=== PATIENT | female | born 2000 | race Caucasian/White ===

== ENCOUNTER 2018-11-24 11:57 | Emergency (ER) | payer OTHER ==
[~2018-11-24] VITALS: Ht 170.2 cm; Wt 89.6 kg
[2018-11-24 13:05] LABS: BASO # 0.1 10^3/uL (0.0-0.2); BASO % 0.3 % (0.0-1.0); EOS # 0.1 10^3/uL (0.0-0.5); EOS % 0.3 % (0.0-3.0); HEMATOCRIT 40.8 % (36.0-47.0); HEMOGLOBIN 13.6 g/dl (12.0-15.5); LYMPH # 1.2 10^3/uL (1.5-5.0); MEAN CORPUSCULAR HEMOGLOBIN 32.1 pg (27.0-33.0); MEAN CORPUSCULAR HGB CONC 33.3 g/dl (32.0-36.5); MEAN CORPUSCULAR VOLUME 96.2 fl (80.0-96.0); MONO # 1.8 10^3/uL (0.0-0.8); MONO % 7.7 % (0.0-5.0); NEUTROPHILS # 20.2 10^3/uL (1.5-8.5); NEUTROPHILS % 86.1 % (36.0-66.0); PLATELET COUNT, AUTOMATED 325 10^3/uL (150-450); RED BLOOD COUNT 4.24 10^6/uL (4.00-5.40); WHITE BLOOD COUNT 23.5 10^3/uL (4.0-10.0)
[2018-11-24 13:14] LABS: ALBUMIN 3.8 GM/DL (3.2-5.2); ALT/SGPT 18 U/L (12-78); BILIRUBIN,DIRECT 0.1 MG/DL (0.0-0.2); BILIRUBIN,TOTAL 0.4 MG/DL (0.2-1.0); BLOOD UREA NITROGEN 13 MG/DL (7-18); CALCIUM LEVEL 9.1 MG/DL (8.5-10.1); CARBON DIOXIDE LEVEL 24 MEQ/L (21-32); CHLORIDE LEVEL 109 MEQ/L (98-107); GLUCOSE, FASTING 83 MG/DL (70-100); LIPASE 68 U/L (73-393); POTASSIUM SERUM 4.2 MEQ/L (3.5-5.1); SODIUM LEVEL 139 MEQ/L (136-145); TOTAL PROTEIN 8.2 GM/DL (6.4-8.2)
[2018-11-24 13:59] LABS: HCG, SERUM QUALITATIVE NEGATIVE (NEGATIVE)
[2018-11-24] MEDS ORDERED: NS 1,000 ML IV ONE (14:00)
[2018-11-24] MEDS ORDERED: ONDANSETRON 4MG/2ML VIAL (J2405) IV ONE (14:00)
[2018-11-24] MEDS ORDERED: ISOVUE-370 76% 100ML VIAL (Q9967) As Ordered ONE (14:04)
[2018-11-24 14:23] LABS: C REACTIVE PROTEIN QUANTITATIV < 0.30 MG/DL (0.00-0.30)
--- NOTE | 2018-11-24 15:16 | REP ---
CT abdomen and pelvis with IV but without oral contrast: History: Upper abdomen pain. Rule out colitis or abscess. CT contrast dose: 100 mL of intravenous Isovue 370. CT findings: Preliminary digital gate agent radiograph is unremarkable. The lung bases are clear. The liver and the spleen are normal in size, homogeneous in texture. The gallbladder and the pancreas are unremarkable. No adrenal lesion is seen on either side. The kidneys enhance symmetrically and are morphologically intact. Normal appendix is visible in the right lower quadrant. Uterus tipped somewhat to the right and contains an IUD in good position. There is a physiologic amount of fluid in the cul-de-sac. Urinary bladder is unremarkable. No ovarian abnormality is appreciated. Small and large bowel loops are unremarkable. Impression: IUD in place. Normal CT study abdomen and pelvis. Normal appendix seen. Electronically Signed by Benedicto Saldana MD 11/24/2018 06:37 P
--- NOTE | 2018-11-24 15:18 | REP ---
REASON: Upper abdominal pain. PRIORS: None. Multiple ultrasonographic images of the liver show the hepatic parenchymal echo pattern to be within normal limits. There is no intrahepatic or extrahepatic ductal dilatation. The common bile duct measures between 4-5 mm. Multiple ultrasonographic images of the gallbladder show no abnormal gallbladder wall thickening, pericholecystic edema, or cholelith. The imaged portion of the pancreas and right kidney show no abnormalities. IMPRESSION: Unremarkable right upper quadrant ultrasound as described above. Electronically Signed by Damion Quintero DO 11/24/2018 04:04 P
[2018-11-24] MEDS ORDERED: ONDA8TAB8 PO (16:27)
[2018-11-24] MEDS ORDERED: ACET-683 PO (16:27)
[2018-11-24 16:50] VITALS: BP 132/70
== END 2018-11-24 16:51 | disposition home or self-care (01) ==
LOC: M ED 11:57
DX: R10.9 Unspecified abdominal pain (principal); R19.7 Diarrhea, unspecified; R11.10 Vomiting, unspecified
CPT/HCPCS: 74177; 76705; 80048; 80076; 81001; 83690; 84702; 84703; 85025; 86140; 87040; 96374; 96375; 99284; J2405; Q9967

== ENCOUNTER 2018-11-29 17:26 | Emergency (ER) | payer OTHER ==
[~2018-11-29] VITALS: Ht 172.7 cm; Wt 88.7 kg
[~2018-11-29 17:26] MED LIST: ACET-683 PO; ONDA8TAB8 PO
[2018-11-29] MEDS ORDERED: ALIG4CAP (17:32)
[2018-11-29] MEDS ORDERED: OMEP-218 (17:32)
[2018-11-29] MEDS ORDERED: SUCR1SS (17:32)
[2018-11-29] MEDS ORDERED: MIRE1IUD IU (17:34)
[2018-11-29] MEDS ORDERED: ONDANSETRON 4MG/2ML VIAL (J2405) IV ONE (18:15)
[2018-11-29] MEDS ORDERED: GI COCKTAIL 50ML BTL(HYOSCYAMINE/MAALOX/LIDOCAINE VISCOUS)(1:3:1) PO ONE (18:15)
[2018-11-29] MEDS ORDERED: NS 1,000 ML IV ONE (18:15)
[2018-11-29] MEDS ORDERED: ONDANSETRON 4 MG ORAL DISINTEGRATING TAB (Q0162 PER 1MG) PO ONE (18:30)
[2018-11-29 18:48] LABS: BASO # 0.1 10^3/uL (0.0-0.2); BASO % 0.6 % (0.0-1.0); EOS # 0.2 10^3/uL (0.0-0.5); EOS % 1.9 % (0.0-3.0); HEMATOCRIT 39.1 % (36.0-47.0); LYMPH % 35.6 % (24.0-44.0); MEAN CORPUSCULAR HEMOGLOBIN 31.6 pg (27.0-33.0); MEAN CORPUSCULAR HGB CONC 33.2 g/dl (32.0-36.5); MEAN CORPUSCULAR VOLUME 94.9 fl (80.0-96.0); MONO # 1.1 10^3/uL (0.0-0.8); MONO % 9.6 % (0.0-5.0); NEUTROPHILS # 5.8 10^3/uL (1.5-8.5); PLATELET COUNT, AUTOMATED 350 10^3/uL (150-450); RED BLOOD COUNT 4.12 10^6/uL (4.00-5.40); WHITE BLOOD COUNT 11.2 10^3/uL (4.0-10.0)
[2018-11-29 19:03] LABS: ALBUMIN 3.7 GM/DL (3.2-5.2); ALT/SGPT 29 U/L (12-78); BILIRUBIN,TOTAL 0.5 MG/DL (0.2-1.0); BLOOD UREA NITROGEN 7 MG/DL (7-18); CALCIUM LEVEL 8.5 MG/DL (8.5-10.1); CARBON DIOXIDE LEVEL 28 MEQ/L (21-32); CHLORIDE LEVEL 108 MEQ/L (98-107); CREATININE FOR GFR 0.56 MG/DL (0.55-1.30); GLUCOSE, FASTING 72 MG/DL (70-100); LIPASE 55 U/L (73-393); POTASSIUM SERUM 4.1 MEQ/L (3.5-5.1); SODIUM LEVEL 139 MEQ/L (136-145); TOTAL PROTEIN 7.2 GM/DL (6.4-8.2)
[2018-11-29] MEDS ORDERED: OMEP20CA4 PO (19:16)
[2018-11-29] MEDS ORDERED: ONDA4TAB6 PO (19:16)
[2018-11-29 19:27] VITALS: BP 114/63
== END 2018-11-29 19:28 | disposition home or self-care (01) ==
LOC: M ED 17:26
DX: R10.13 Epigastric pain (principal); K21.9 Gastro-esophageal reflux disease without esophagitis; Z79.899 Other long term (current) drug therapy
CPT/HCPCS: 80053; 83690; 85025; 85379; 96374; 99283; Q0162

== ENCOUNTER 2019-05-04 11:20 | Inpatient (IN) | payer OTHER ==
[~2019-05-04] VITALS: Ht 172.7 cm; Wt 89.9 kg
[~2019-05-04 11:20] MED LIST changes: +ALIG4CAP; +MIRE1IUD IU; +OMEP-218; +OMEP1CAP73 PO; +ONDA4TAB6 PO; +SUCR1SS
[2019-05-04 12:06] LABS: HEMATOCRIT 43.6 % (36.0-47.0); HEMOGLOBIN 14.6 g/dl (12.0-15.5); MEAN CORPUSCULAR HEMOGLOBIN 32.1 pg (27.0-33.0); MEAN CORPUSCULAR HGB CONC 33.5 g/dl (32.0-36.5); MEAN CORPUSCULAR VOLUME 95.8 fl (80.0-96.0); PLATELET COUNT, AUTOMATED 371 10^3/uL (150-450); RED BLOOD COUNT 4.55 10^6/uL (4.00-5.40); WHITE BLOOD COUNT 11.1 10^3/uL (4.0-10.0)
[2019-05-04 12:32] LABS: AMPHETAMINES LEVEL URINE NEGATIVE (NEGATIVE); BARBITURATES URINE NEGATIVE (NEGATIVE); BENZODIAZEPINES URINE NEGATIVE (NEGATIVE); CANNABINOIDS URINE NEGATIVE (NEGATIVE); COCAINE METABOLITE URINE NEGATIVE (NEGATIVE); METHADONE URINE NEGATIVE (NEGATIVE); OPIATES URINE NEGATIVE (NEGATIVE); PHENCYCLIDINE URINE NEGATIVE (NEGATIVE)
[2019-05-04 12:43] LABS: ACETAMINOPHEN LEVEL < 2.0 UG/ML (10.0-30.0); ALBUMIN 4.1 GM/DL (3.2-5.2); ALT/SGPT 21 U/L (12-78); BILIRUBIN,DIRECT 0.2 MG/DL (0.0-0.2); BILIRUBIN,TOTAL 0.7 MG/DL (0.2-1.0); BLOOD UREA NITROGEN 11 MG/DL (7-18); CALCIUM LEVEL 9.1 MG/DL (8.5-10.1); CARBON DIOXIDE LEVEL 26 MEQ/L (21-32); CHLORIDE LEVEL 106 MEQ/L (98-107); CREATININE FOR GFR 0.67 MG/DL (0.55-1.30); ETHYL ALCOHOL (ETHANOL) 0.004 % (0.000-0.010); GLUCOSE, FASTING 117 MG/DL (70-100); SALICYLATE LEVEL < 1.7 MG/DL (5.0-30.0); SODIUM LEVEL 139 MEQ/L (136-145); TOTAL PROTEIN 8.1 GM/DL (6.4-8.2)
[2019-05-04] MEDS ORDERED: IBUPROFEN 600 MG TAB PO ONE (13:15)
[2019-05-04] MEDS ORDERED: ACETAMINOPHEN TAB 650MG DOSE (2X325MG) PO PRN (13:45)
[2019-05-04] MEDS ORDERED: MOM 30ML SUSPENSION UDC PO PRN (13:45)
[2019-05-04] MEDS ORDERED: traZODone 50 MG TAB PO PRN (13:45)
[2019-05-04] MEDS ORDERED: MAALOX 30 ML SUSP *UDC PO PRN (13:45)
[2019-05-04] MEDS ORDERED: ACET-683 PO (14:17)
[2019-05-04 16:12] VITALS: BP 120/68
[2019-05-04 17:32] VITALS: BP 129/83
--- NOTE | 2019-05-04 19:53 | HPEPDOC ---
General Date of Admission May 04, 2019 at 13:35 Date of Service: May 04, 2019 Chief Complaint The patient is a 18-year-old female admitted with a reason for visit of Unspecified Depressive Disorder. Source: Patient History of Present Illness 18 year old [employer] admitted to [facility] for depression. She has been having a lot of stress recently and she has been having suicidal thoughts. She is feeling very depressed. I am seeing the patient for medical history and physical. She complains of having some abdominal cramps today. Says it worsens with intake of dairy products. 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 She sometimes has bilateral leg weakness with difficulty in walking but at present OK. The abdominal cramps are all over the abdomen without any diarrhea or vomiting. Home Medications Scheduled Levonorgestrel (Mirena) 1 Each Iud, 1 DOSE IU ASDIRECTED, (Reported) Scheduled PRN Acetaminophen (Acetaminophen) 500 Mg Tablet, 1,000 MG PO Q6H PRN for PAIN, (Reported) Allergies Coded Allergies: No Known Allergies (Unverified , 11/24/18) Past Medical History Medical History Gastritis, GERD, Congenital Myasthenic syndrome. Family History Significant Family History: Cancer (paternal grandmother), Diabetes (maternal grandmother), Hypertension (maternal uncles) Social History * Smoker: current smoker, greater than 1 pack/day Alcohol: rarely Drugs: denies A-FIB/CHADSVASC A-FIB History Current/History of A-Fib/PAF?: No Review of Systems Constitutional: Denies: Chills, Fever, Night Sweats Eyes: Denies: Pain, Vision change ENT: Denies: Head Aches, Ear Pain, Dysphagia Skin: Denies: Rash, Lesions, Breakdown Pulmonary: Denies: Dyspnea, Cough Cardiovascular: Denies: Chest Pain, Palpitations, Orthopnea, Paroxysmal Noc. Dyspnea, Lt Headedness Gastrointestinal: Reports: Abdominal Pain Genitourinary: Denies: Dysuria, Frequency, Incontinence, Retention Endocrine: Reports: Polydipsia Musculoskeletal: Denies: Neck Pain, Back Pain, Joint Pain, Muscle Pain, Spasms Physical Examination General Exam: Positive: Alert, Cooperative, No Acute Distress Eye Exam: Positive: PERRLA, Conjunctiva & lids normal, EOMI; Negative: Sclera icteric ENT Exam: Positive: Atraumatic, Mucous membr. moist/pink, Pharynx Normal Neck Exam: Positive: Supple; Negative: JVD, thyromegaly Chest Exam: Positive: Clear to auscultation, Normal air movement Heart Exam: Positive: Rate Normal, Regular Rhythm, Normal S1, Normal S2; Negative: Murmurs, Rubs Abdomen Exam: Positive: Normal bowel sounds, Soft, Tenderness (mild generalized tenderness on deep palpation); Negative: Hepatospenomegaly Extremity Exam: Positive: Normal pulses; Negative: Clubbing, Cyanosis, Edema Skin Exam: Positive: Nl turgor and temperature; Negative: Breakdown, Lesion Vital Signs Vital Signs Date Time Temp Pulse Resp B/P (MAP) Pulse Ox O2 Delivery O2 Flow Rate FiO2 05/04/19 16:12 97.3 69 12 120/68 (85) 99 Room Air Laboratory Data Labs 24H Laboratory Tests 2 05/04/19 11:54: Nucleated Red Blood Cells % (auto) 0.0, Anion Gap 7L, Calcium Level 9.1, Total Bilirubin 0.7, Direct Bilirubin 0.2, Aspartate Amino Transf (AST/SGOT) 16, Alanine Aminotransferase (ALT/SGPT) 21, Alkaline Phosphatase 141H, Total Protein 8.1, Albumin 4.1, Albumin/Globulin Ratio 1.03, Thyroid Stimulating Hormone (TSH) 2.690, Salicylates Level < 1.7L, Urine Opiates Screen NEGATIVE, Urine Methadone Screen NEGATIVE, Acetaminophen Level < 2.0L, Urine Barbiturates Screen NEGATIVE, Urine Phencyclidine Screen NEGATIVE, Urine Amphetamines Screen NEGATIVE, Urine Benzodiazepines Screen NEGATIVE, Urine Cocaine Metabolite Screen NEGATIVE, Urine Cannabinoids Screen NEGATIVE, Ethyl Alcohol Level 0.004 CBC/BMP Laboratory Tests 05/04/19 11:54 Assessment/Plan 18 year old female admitted for depression. she has complaints of chronic abdominal pain. Abdominal pain intermittent chronic may be lactose intolerance as says worsens with intake of dairy products also has h/o gastritis and small hiatal hernia. at present says not too bad says sometimes takes omeprazoke if too bad. follow up pmd. Depression as per psych Congenital Myaesthenic syndrome not on any meds. Plan / VTE VTE Prophylaxis Ordered?: No JESSIKA TORRE MD May 04, 2019 17:34
[2019-05-05 06:17] VITALS: BP 127/60
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
[2019-05-05] MEDS ORDERED: hydrOXYzine 25 MG TAB PO PRN (10:15)
[2019-05-05 15:53] VITALS: BP 120/80
[2019-05-06 06:27] VITALS: BP 117/51
--- NOTE | 2019-05-06 08:46 | MHIPNPDOC ---
[facility] Progress Note Progress Note DATE OF SERVICE: 05/06/19 HISTORY: Patient is a 18 -year-old , dependent, female, with no previous psych history who self-presented to the ED endorsing SI with a plan to either shoot herself (no access to weapons as took it away), cut wrists with a knife, or over dose on tylenol due to psychosocial stressors. In the Ed pt endorsed depressed mood and SI with plan due to her psychosocial stressors becoming overwhelming. States she is in her last semester at [employer] in [place] and lives on [facility] until 2wks ago which she was no longer to reside there ans is now finishing classes online residing with her multimedia designer. She stated in the Ed that she does not do well with changes. States her has been very supportive though. Pt stated that her GPA is possibly not enough for [place], her had been planning on moving to [place] but now that's on hold due to COVID19. Pt stated in the Ed that she had been very emotional and thought of shooting herself in the head and stood up to look for ammo to load her 's gun but instead called to suicide hotline. She endorsed a history of binge eating d/o in the ED. Pt seen and states she's here as she usually struggles with anxiety and depression and has recently gone thru a lot of life changes that caused her to feel a lot of anxiety. States she also lost a major support system in her life meaning her professors and friends at school. States she feels "better" today, "more mentally clear." States she feels she "processing" her emotions and life stressors and no longer feels "scared or upset by them." Agreeable to trying vistaril prn anxiety, risks and benefits discussed. Denies SI/HI, hallucinatio ns, delusions. Feels safe here. VITAL SIGNS: See below. NEW TEST RESULTS: See below. CURRENT MEDICATIONS: See below. MENTAL STATUS EXAMINATION: General Appearance: well groomed, appears stated age, hospital scubs/clothing Build: average Demeanor: average Eye Contact: average Activity: average Behavior: cooperative Speech: clear, spontaneous, normal volume Mood: euthymic Mood "ok" Affect: full, appropriate Thought Process: logical/linear, intact Thought Content (Delusions): none reported, denies SI, HI, AVH Thought Content (Other): none reported, appropriate Thought Content (Aggressive): none reported Perception (Hallucinations): none reported Perception (Other): none reported Cognition (Impairment of): none reported Cognition(Intelligence Est.): average Oriented: Awake, Alert, Oriented times three Insight: fair Judgment: Fair Psychosis: Denies DIAGNOSES: adjustment d/o with anxiety and depression r/o Generalized Anxiety D/O hx of binge eating d/o ASSESSMENT:Pt seen and states that her mood is "ok" and her anxiety is improved. States she has not needed to take vistaril for anxiety yet but plans to do some school work today and may take it to if she tolerates it well and it's beneficial. States she slept well last night. She is attending groups and finding them helpful. She denies SI/HI, hallucinations, delusions. Pt feels safe here. MANAGEMENT PLAN: d/c planning for tomorrow vistaril 25mg q4hr prn anxiety TIME SPENT: 30 minutes. Vital Signs Vital Signs Date Time Temp Pulse Resp B/P (MAP) Pulse Ox O2 Delivery O2 Flow Rate FiO2 05/06/19 06:27 99.4 76 18 117/51 (73) 05/05/19 10:20 Room Air 05/04/19 17:32 98 Current Medications Current Medications Medications (Trade) Dose Ordered Sig/Mynor Route PRN Reason Start Time Stop Time Status Last Admin Dose Admin Acetaminophen (Tylenol Tab) 650 mg Q6HP PRN PO HEADACHE or DISCOMFORT 05/04/19 13:45 Al Hydrox/Mg Hydrox/Simethicone (Mylanta) 30 ml Q4HP PRN PO HEARTBURN/INDIGESTION 05/04/19 13:45 Home Med (Med Rec Complete!) ASDIRECTED XX 05/04/19 14:30 05/04/19 14:19 DC Hydroxyzine HCl (Atarax) 25 mg Q4HP PRN PO ANXIETY/AGITATION 05/05/19 10:15 Magnesium Hydroxide (Milk Of Magnesia) 30 ml DAILYPRN PRN PO CONSTIPATION 05/04/19 13:45 Trazodone HCl (Desyrel) 50 mg QHSP PRN PO INSOMNIA 05/04/19 13:45 05/05/19 22:01 Allergies Coded Allergies: No Known Allergies (Unverified , 11/24/18) JOSHUA RYAN DO May 06, 2019 8:46 am
[2019-05-06] MEDS ORDERED: INFLUENZA QUADRIVALENT PF VACCINE 0.5ML SYRINGE (90686) IM ONE (09:00)
[2019-05-06 16:00] VITALS: BP 122/75
[2019-05-07 06:18] VITALS: BP 110/68
[2019-05-07] MEDS ORDERED: HYDR-3363 PO (08:51)
[2019-05-07] MEDS ORDERED: TRAZ-252 PO (08:51)
--- NOTE | 2019-05-07 08:52 | MHDSPDOC ---
[facility] Discharge Summary Discharge Summary DATE OF ADMISSION: May 04, 2019 at 1:35 pm DATE OF DISCHARGE: May 07, 2019 DISCHARGE DIAGNOSES: adjustment d/o with anxiety and depression r/o Generalized Anxiety D/O hx of binge eating d/o REASON FOR ADMISSION: Patient is a 18 -year-old , dependent, female, with no previous psych history who self-presented to the ED endorsing SI with a plan to either shoot herself (no access to weapons as took it aw ay), cut wrists with a knife, or over dose on tylenol due to psychosocial stressors. In the Ed pt endorsed depressed mood and SI with plan due to her psychosocial stressors becoming overwhelming. States she is in her last semester at [employer] in [place] and lives on [facility] until 2wks ago which she was no longer to reside there ans is now finishing classes online residing with her multimedia teacher. She stated in the Ed that she does not do well with changes. States her has been very supportive though. Pt stated that her GPA is possibly not enough for [place], her had been planning on moving to [place] but now that's on hold due to COVID19. Pt stated in the Ed that she had been very emotional and thought of shooting herself in the head and stood up to look for ammo to load her 's gun but instead called to suicide hotline. She endorsed a history of binge eating d/o in the ED. Pt seen and states she's here as she usually struggles with anxiety and depression and has recently gone thru a lot of life changes that caused her to feel a lot of anxiety. States she also lost a major support system in her life meaning her professors and friends at school. States she feels "better" today, "more mentally clear." States she feels she "processing" her emotions and life stressors and no longer feels "scared or upset by them." Agreeable to trying vistaril prn anxiety, risks and benefits discussed. Denies SI/HI, hallucinations, delusions. Feels safe here. CONSULTANTS INVOLVED: none TREATMENT AND PROGRESS ON THE UNIT :Pt was admitted to [facility], seen for psychiatric assessment and chose not to start an antidepressant but rather try outpatient therapy as treatment first. She was provided vistaril 25mg q6hr prn anxiety and trazodone 50mg qhs prn insomnia. Pt found her vistaril beneficial for her anxiety and tolerated it well. She attended groups daily during her stay. Her symptoms improved with treatment. On day of discharge she denied depression, anxiety, insomnia, SI/HI, hallucinations, delusions. She was discharged home with follow-up at the [facility]. She felt safe for discharge DISCHARGE ASSESSMENT: Pt seen and states that her mood is "good" today and that she's looking forward to going home today with her . States she took her vistaril for anxiety it was beneficial for her anxiety and she tolerated it well. States she slept well last night. She is attending groups and finding them helpful. She denies depression, anxiety, insomnia, SI/HI, hallucinations, delusions. Pt feels safe to d/c home today with her . MENTAL STATUS EXAMINATION ON DISCHARGE: General Appearance: well groomed, appears stated age, hospital scubs/clothing Build: average Demeanor: average Eye Contact: average Activity: average Behavior: cooperative Speech: clear, spontaneous, normal volume Mood: euthymic Mood "good" Affect: full, appropriate Thought Process: logical/linear, intact Thought Content (Delusions): none reported, denies SI, HI, AVH Thought Content (Other): none reported, appropriate Thought Content (Aggressive): none reported Perception (Hallucinations): none reported Perception (Other): none reported Cognition (Impairment of): none reported Cognition(Intelligence Est.): average Oriented: Awake, Alert, Oriented times three Insight: good Judgment: good Psychosis: Denies MEDICATIONS ON DISCHARGE: vistaril 25mg tid prn anxiety trazodone 50mg qhs prn insomnia PLAN/FOLLOWUP ARRANGEMENTS: D/c home with follow-up at the [facility]. The amount of time spent in the coordination of care for this patient was approximately 30 minutes. Vital Signs/I&Os Vital Signs Date Time Temp Pulse Resp B/P (MAP) Pulse Ox O2 Delivery O2 Flow Rate FiO2 05/07/19 06:18 97.5 84 18 110/68 (82) 05/06/19 08:54 Room Air 05/04/19 17:32 98 Medications Scheduled Levonorgestrel (Mirena) 1 Each Iud, 1 DOSE IU ASDIRECTED, (Reported) Scheduled PRN Acetaminophen (Acetaminophen) 500 Mg Tablet, 1,000 MG PO Q6H PRN for PAIN, (Reported) Allergies Coded Allergies: No Known Allergies (Unverified , 11/24/18) JOSHUA RYAN DO May 07, 2019 8:52 am
== END 2019-05-07 11:15 | disposition home or self-care (01) | DRG 882 ==
LOC: M ED 11:20 → M ED INP 13:35 → M PSY 14:43
PROVIDERS: ADMIT Psychiatry & Neurology Psychiatry; ATTEND Psychiatry & Neurology Psychiatry
DX: F43.23 Adjustment disorder with mixed anxiety and depressed mood (principal); G70.2 Congenital and developmental myasthenia; Z81.8 Family history of other mental and behavioral disorders; Z81.1 Family history of alcohol abuse and dependence; Z62.811 Personal history of psychological abuse in childhood; F41.1 Generalized anxiety disorder; F50.81 Binge eating disorder; Z79.3 Long term (current) use of hormonal contraceptives; Z63.8 Other specified problems related to primary support group

== ENCOUNTER 2019-08-17 21:22 | Emergency (ER) | payer OTHER ==
[~2019-08-17] VITALS: Ht 172.7 cm; Wt 96.5 kg
[~2019-08-17 21:22] MED LIST changes: +HYDR-3363 PO; +TRAZ-252 PO
[2019-08-17 21:23] VITALS: BP 126/75
[2019-08-17] MEDS ORDERED: ZOLO25TA PO (21:40)
[2019-08-18] MEDS ORDERED: predniSONE 20 MG TAB PO ONE (00:45)
[2019-08-18] MEDS ORDERED: diphenhydrAMINE 50MG CAP PO ONE (00:45)
[2019-08-18] MEDS ORDERED: PRED20TA PO (00:48)
== END 2019-08-18 01:06 | disposition home or self-care (01) ==
LOC: M ED 21:22
DX: S00.271A Other superficial bite of right eyelid and periocular area, initial encounter (principal); W57.XXXA Bitten or stung by nonvenomous insect and other nonvenomous arthropods, initial encounter; Y92.9 Unspecified place or not applicable; Y99.8 Other external cause status; Y93.9 Activity, unspecified; Z79.899 Other long term (current) drug therapy

== ENCOUNTER 2019-10-25 08:15 | Inpatient (IN) | payer OTHER ==
[~2019-10-25] VITALS: Ht 172.7 cm; Wt 98.3 kg
[~2019-10-25 08:15] MED LIST changes: +PRED20TA PO; +ZOLO25TA PO
[2019-10-25] MEDS ORDERED: VYVA50CA4 PO (08:22)
[2019-10-25] MEDS ORDERED: SERT-138 PO (08:53)
[2019-10-25 09:03] LABS: HEMATOCRIT 43.1 % (36.0-47.0); MEAN CORPUSCULAR HEMOGLOBIN 30.4 pg (27.0-33.0); MEAN CORPUSCULAR HGB CONC 32.5 g/dl (32.0-36.5); MEAN CORPUSCULAR VOLUME 93.5 fl (80.0-96.0); PLATELET COUNT, AUTOMATED 441 10^3/uL (150-450); RED BLOOD COUNT 4.61 10^6/uL (4.00-5.40); WHITE BLOOD COUNT 14.3 10^3/uL (4.0-10.0)
[2019-10-25 09:25] LABS: AMPHETAMINES LEVEL URINE POSITIVE (NEGATIVE); BARBITURATES URINE NEGATIVE (NEGATIVE); BENZODIAZEPINES URINE NEGATIVE (NEGATIVE); CANNABINOIDS URINE NEGATIVE (NEGATIVE); COCAINE METABOLITE URINE NEGATIVE (NEGATIVE); HCG, SERUM QUALITATIVE NEGATIVE (NEGATIVE); METHADONE URINE NEGATIVE (NEGATIVE); OPIATES URINE NEGATIVE (NEGATIVE); PHENCYCLIDINE URINE NEGATIVE (NEGATIVE)
[2019-10-25 09:58] LABS: ACETAMINOPHEN LEVEL < 2.0 UG/ML (10.0-30.0); ALBUMIN 3.6 GM/DL (3.2-5.2); ALT/SGPT 18 U/L (12-78); BILIRUBIN,DIRECT < 0.1 MG/DL (0.0-0.2); BILIRUBIN,TOTAL 0.3 MG/DL (0.2-1.0); BLOOD UREA NITROGEN 8 MG/DL (7-18); CALCIUM LEVEL 8.5 MG/DL (8.5-10.1); CARBON DIOXIDE LEVEL 27 MEQ/L (21-32); CHLORIDE LEVEL 108 MEQ/L (98-107); CREATININE FOR GFR 0.69 MG/DL (0.55-1.30); ETHYL ALCOHOL (ETHANOL) 0.003 % (0.000-0.010); GLOMERULAR FILTRATION RATE > 60.0 (>60); GLUCOSE, FASTING 79 MG/DL (70-100); POTASSIUM SERUM 3.7 MEQ/L (3.5-5.1); SALICYLATE LEVEL < 1.7 MG/DL (5.0-30.0); SODIUM LEVEL 142 MEQ/L (136-145); TOTAL PROTEIN 8.1 GM/DL (6.4-8.2)
[2019-10-25] MEDS ORDERED: ACETAMINOPHEN TAB 650MG DOSE (2X325MG) PO ONE (12:30)
[2019-10-26] MEDS: SERTRALINE 100 MG TAB PO SCH (09:46)
[2019-10-26] MEDS ORDERED: MAALOX 30 ML SUSP *UDC PO PRN (16:15)
[2019-10-26] MEDS ORDERED: MOM 30ML SUSPENSION UDC PO PRN (16:15)
[2019-10-26] MEDS ORDERED: OLANZapine 5 MG TAB PO PRN (16:15)
[2019-10-26] MEDS ORDERED: IBUPROFEN 400 MG TAB PO PRN (16:15)
[2019-10-26 21:30] VITALS: BP 132/80
[2019-10-27 06:35] VITALS: BP 133/68
[2019-10-27] MEDS: VYVANSE 50MG CAPSULE (PATIENT'S OWN MED) PO SCH (10:18)
[2019-10-27] MEDS: SERTRALINE 100 MG TAB PO SCH (10:18)
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
[2019-10-27 16:25] VITALS: BP 133/81
[2019-10-28 06:19] VITALS: BP 121/56
[2019-10-28] MEDS: SERTRALINE 100 MG TAB PO SCH (08:37)
[2019-10-28] MEDS: VYVANSE 50MG CAPSULE (PATIENT'S OWN MED) PO SCH (08:37)
--- NOTE | 2019-10-28 09:48 | MHDSPDOC ---
[facility] Discharge Summary Discharge Summary DATE OF ADMISSION: Oct 26, 2019 at 16:09 DATE OF DISCHARGE: Oct 28, 2019 at 12:35 DISCHARGE DIAGNOSES: F43.10 Post-traumatic stress disorder, unspecified F10.929 Alcohol use, unspecified with intoxication, unspecified CONSULTANTS INVOLVED:[ None (basic hospitalist screening)] REASON FOR ADMISSION & TREATMENT AND PROGRESS ON THE UNIT : Kerry presents today for concerns regarding her flashbacks to trauma. She is admitted to the inpatient mental health unit after becoming intoxicated and having flashbacks to trauma. She reportedly felt suicidal and was concerned while on a road trip. She was observed 48 hours for suicidality, and did well in the unit. She felt that alcohol was the primary provoking cause, and never had a flashback prior. MEDICATIONS: Once admitted, she resumed her home medications, except Vyvanse because it was not on her formulary. DISCHARGE ASSESSMENT[improved] Legal status considerations: The patient at the time of discharge did not meet criteria for involuntary admission/extension due to having a [normal] mental status exam, [fair] insight into the situation, They are engaged in the discharge process, as well as being friendly and amenable in behavioral control and havent been engaging in any observed concerning behavior or ideation recently. They decline voluntary extens ion/admission at this time and must be discharged in good jina, as Im unable to make a case for holding the patient against their will. They may have historical risk factors of admissions and other interactions with psychiatry however, those are not modifiable from a clinical perspective. The patient will need to be discharged in good jina. MENTAL STATUS EXAMINATION ON DISCHARGE: [General: Well dressed with good hygiene Speech: Spontaneous and fluid Thought processes: Linear and logical Thought content: Future orientated Abstract reasoning, and computation: Intact Description of associations: Intact Description of abnormal or psychotic thoughts:Denies any suicidal or homicidal ideation. Denies any auditory or visual hallucinations. Does not appear to be responding to internal stimuli. Does not appear to be endorsing any bizarre or paranoid ideation. Judgment: fair Insight: fair Orientation: Alert and orientated 3 Recent and remote memory: Intact Attention span and concentration: Intact Fund of knowledge: Adequate Mood: "okay" Affect: Euthymic with a full range] PLAN/FOLLOWUP ARRANGEMENTS: Follow up appointments made (PCP and MH in 5 days of D/C date) and safety plan completed. Safety Planning aspects completed prior to discharge [Family contact completed, educated on safe practices, instructed on removal and mitigation of dangerous means] [RN reviewed crisis hotline information and other aspects to empower patient to access care in interim before next appointment.] The amount of time spent in the coordination of care for this patient was approximately 30 minutes. Vital Signs/I&Os Vital Signs Date Time Temp Pulse Resp B/P (MAP) Pulse Ox O2 Delivery O2 Flow Rate FiO2 10/28/19 06:19 97.9 81 16 121/56 (77) 10/26/19 21:30 98 Room Air Medications Scheduled Levonorgestrel (Mirena) 1 Each Iud, 1 DOSE IU ASDIRECTED, (Reported) Lisdexamfetamine Dimesylate (Vyvanse) 50 Mg Capsule, 50 MG PO DAILY, (Reported) Sertraline HCl (Sertraline HCl) 100 Mg Tablet, 100 MG PO DAILY, (Reported) Scheduled PRN Acetaminophen (Acetaminophen) 500 Mg Tablet, 1,000 MG PO Q6H PRN for PAIN, (Reported) Allergies Coded Allergies: No Known Allergies (Unverified , 08/17/19) CORBY INIGUEZ DO Oct 28, 2019 09:48
--- NOTE | 2019-10-30 11:22 | ECGEPIP ---
[facility] - ED Test Date: 2019-10-25 Pat Name: JERMAINE POSADA Department: Room: - Gender: Female Medical Device Assembler: armen : 2000 Requested By: EUFEMIA Navarrete Order Number: [id number] Reading MD: Ade Vazquez Measurements Intervals [place] Rate: 66 P: 50 OR: 136 QRS: 66 QRSD: 97 T: 17 QT: 439 QTc: 460 Interpretive Statements SINUS RHYTHM WITH SINUS ARRHYTHMIA POSSIBLE RIGHT VENTRICULAR CONDUCTION DELAY BORDERLINE ECG SEE SCANNED DOWNTIME REPORT
== END 2019-10-28 12:35 | disposition home or self-care (01) | DRG 882 ==
LOC: M ED 08:15 → M ED INP 10-26 16:09 → M PSY 10-26 21:02
PROVIDERS: ADMIT Psychiatry & Neurology Psychiatry; ATTEND Psychiatry & Neurology Addiction Medicine
DX: F43.10 Post-traumatic stress disorder, unspecified (principal); F10.929 Alcohol use, unspecified with intoxication, unspecified; Z79.899 Other long term (current) drug therapy; K21.9 Gastro-esophageal reflux disease without esophagitis; G70.9 Myoneural disorder, unspecified